=== PATIENT | female | born 1990 | race Caucasian/White ===

== ENCOUNTER 2016-09-17 16:48 | Emergency (ER) | payer SELFPAY ==
[~2016-09-17] VITALS: Ht 160 cm; Wt 84.1 kg
[~2016-09-17 16:48] MED LIST: BCP TD; BENTYL20 MG PO; MACROBID 1100 MG/CAP PO; MERINA; NAPROSYN500 MG PO; NORCO 325 MG-51 TAB PO; PERCOCET 325 MG1 TA2 PO; SILVADENE 400G400 GM TP
[2016-09-17 16:50] VITALS: BP 126/66; TEMP 98.5
[2016-09-17] MEDS ORDERED: MIRENA52 MG IY (17:31)
[2016-09-17] MEDS ORDERED: CEPHALEXIN500 M1 PO (18:14)
[2016-09-17 18:22] VITALS: PULSE 82
== END 2016-09-17 18:23 | disposition home or self-care (01) ==
LOC: COL.ER 16:48
DX: S50.861A Insect bite (nonvenomous) of right forearm, initial encounter (principal); L08.9 Local infection of the skin and subcutaneous tissue, unspecified; F41.9 Anxiety disorder, unspecified; F17.210 Nicotine dependence, cigarettes, uncomplicated; Z98.890 Other specified postprocedural states; Z90.49 Acquired absence of other specified parts of digestive tract; W57.XXXA Bitten or stung by nonvenomous insect and other nonvenomous arthropods, initial encounter